=== PATIENT | male | born 1965 | race Caucasian/White ===

== ENCOUNTER → 2018-02-19 12:33 | Outpatient (CLI) | payer OTHER, SELFPAY ==
[2018-02-19 13:48] LABS: Hemoglobin A1C% w Est Avg Glu 9.2 % (4.0-6.0)
[2018-02-19 13:49] LABS: Add Manual Diff / Slide Review NO; Basophils Percent Auto 1.9 % (0-2); Eosinophils Percent Auto 5.8 % (2-4); Hematocrit 41.9 % (41-53); Hemoglobin 14.3 g/dL (13.5-17.5); Lymphocytes Percent Auto 43.1 % (25-40); Mean Corpuscular HGB Conc 34.1 % (30-36); Mean Corpuscular Hemoglobin 32.5 PG (26-34); Mean Corpuscular Volume 95.3 fL (80-100); Neutrophils Absolute Auto 3500 /uL (3000-5900); Neutrophils Percent Auto 44.2 % (50-75); Platelet Count 192 X10^3/uL (150-400); Red Cell Distribution Width 13.3 % (11.6-14.8); White Blood Cell Count 7.8 X10^3/uL (4.5-11.0)
[2018-02-19 13:54] LABS: Alanine Aminotransferase 74 IU/L (21-72); Albumin 4.5 g/dL (3.5-5.0); Albumin Globulin Ratio 1.5 (1.0-2.8); Alkaline Phosphatase 75 U/L (38-126); Aspartate Aminotransferase 83 IU/L (17-59); Bilirubin Total 0.7 mg/dL (0.2-1.3); Blood Urea Nitrogen 23 mg/dL (9-20); Calcium 9.9 mg/dL (8.4-10.2); Carbon Dioxide 26 mmol/L (22-32); Chloride 105 mmol/L (98-107); Estimated Glomerular Filt Rate > 60.0 mL/min (>60); Globulin 3.1 g/dL (1.7-4.1); Glucose 198 mg/dL (70-100); HDL Cholesterol 41 mg/dL (40-60); HEMOLYSIS < 15 (0-50); Potassium 5.3 mmol/L (3.4-5.1); Sodium 144 mmol/L (137-145); Total Protein 7.6 g/dL (6.3-8.2)
[2018-02-19 14:03] LABS: Cholesterol 438 mg/dL (140-199); Triglycerides 1376 mg/dL (35-150)
[2018-02-19 14:24] LABS: TSH w/ Reflex to FT4 2.85 uIU/mL (0.47-4.68)
[2018-02-19 16:07] LABS: Creatinine Urine Random 238.1 mg/dL
[2018-02-19 16:10] LABS: Microalbumi Creatinin Ratio Ur 28.9 ug/mg CR (<30); Microalbumin Urine Random 6.9 mg/dL (0-1.6)
== END ==
PROVIDERS: Family Provider Orthopaedic Surgery; PCP Family Medicine; Visit Provider Family Medicine
DX: E11.9 Type 2 diabetes mellitus without complications (principal); E78.1 Pure hyperglyceridemia; K70.9 Alcoholic liver disease, unspecified; Z00.00 Encounter for general adult medical examination without abnormal findings
CPT/HCPCS: 36415; 80053; 80061; 82043; 82570; 83036; 84443; 85025

== ENCOUNTER 2019-08-11 12:25 | Emergency (ER) | payer OTHER, SELFPAY ==
[2019-08-11 12:30] VITALS: BP 160/97; PULSE 98; RESP 22; TEMP 37; O2SAT 97
--- NOTE | 2019-08-11 12:43 | PC.NURSE ---
pt c/o left flank pain started 2 days ago. today having vomiting x4. pt noticed bs high than normal.
[2019-08-11 12:56] LABS: Add Manual Diff / Slide Review NO; Basophils Absolute Auto 300 /uL (0-100); Basophils Percent Auto 1.8 % (0-2); Eosinophils Absolute Auto 100 /uL (0-450); Eosinophils Percent Auto 0.5 % (2-4); Hematocrit 42.5 % (41-53); Hemoglobin 14.9 g/dL (13.5-17.5); Lymphocytes Absolute Auto 2600 /uL (1100-4500); Lymphocytes Percent Auto 18.4 % (25-40); Mean Corpuscular HGB Conc 35.1 % (30-36); Mean Corpuscular Hemoglobin 30.9 PG (26-34); Mean Corpuscular Volume 88.3 fL (80-100); Monocytes Absolute Auto 500 /uL (0-900); Monocytes Percent Auto 3.8 % (3-14); Neutrophils Absolute Auto 10800 /uL (1500-7000); Neutrophils Percent Auto 75.5 % (50-75); Platelet Count 316 X10^3/uL (150-400); Red Blood Cell Count 4.81 X10^6/uL (4.5-5.9); Red Cell Distribution Width 13.6 % (11.6-14.8); White Blood Cell Count 14.3 X10^3/uL (4.5-11.0)
[2019-08-11 13:01] LABS: Alanine Aminotransferase 21 IU/L (<50); Albumin 4.5 g/dL (3.5-5.0); Albumin Globulin Ratio 1.1 (1.0-2.8); Alkaline Phosphatase 84 U/L (38-126); Aspartate Aminotransferase 24 IU/L (17-59); BUN Creatinine Ratio 24.7 (6-22); Bilirubin Total 0.6 mg/dL (0.2-1.3); Blood Urea Nitrogen 18 mg/dL (9-20); Calcium 9.7 mg/dL (8.4-10.2); Carbon Dioxide 19 mmol/L (22-32); Chloride 99 mmol/L (98-107); Estimated Glomerular Filt Rate > 60.0 mL/min (>60); Glucose 382 mg/dL (70-100); HEMOLYSIS 38 (0-50); Lipase 94 U/L (23-300); Potassium 4.6 mmol/L (3.4-5.1); Sodium 133 mmol/L (137-145); Total Protein 8.5 g/dL (6.3-8.2)
[2019-08-11] MEDS: ONDANSETRON 4 MG/2 ML INJ IV (13:02)
--- NOTE | 2019-08-11 13:02 | ED_ITS ---
HPI - General Adult <VERNON Batista - Last Filed: 08/11/19 19:54> General Chief complaint: Diabetic Problem Stated complaint: diabetes and his kidneys are sore Time Seen by Provider: 08/11/19 12:33 Source: patient Mode of arrival: Ambulatory Limitations: no limitations History of Present Illness HPI narrative: This is a 54 year male, smoker, who presents to ED with left flank pain and states my kidney is sensitive for last 2-3 days. Patient reports this morning left flank pain has radiated to left abdomen with 2 episodes of small amount of phlemgy emesis. Patient denies fever or chills, urinary symptoms including urgency, frequency, hematuria or dysuria. Patient denies recent back straining, trauma, fall. Patient reports pain as 7 to 8/10 and malingering as constant and tender. Patient denies chest pain, nausea, history of kidney stones, kidney disease. Patient reports history of diabetes, hypertension, arthritis and reports had not taken any medications this morning as scheduled since he was not feeling well including diabetic and hypertensive medication. Patient denies diarrhea or blood in stool and reports had his normal bowel movement at 11:00 a.m. today. Patient reports he had not slept well last 24 hours secondary to pain. Patient reports he used to drink quite heavily but has not been drinking due to alcoholic and last drink as 3 weeks ago. Related Data Home Medications Medication Instructions Recorded Confirmed cholecalciferol (vitamin D3) 4,000 unit PO DAILY 08/11/19 08/11/19 [Vitamin D3] lisinopril [Zestril] 40 mg PO DAILY 08/11/19 08/11/19 magnesium oxide 400 mg PO BID 08/11/19 08/11/19 multivitamin 1 tab PO DAILY 08/11/19 08/11/19 Previous Rx's Medication Instructions Recorded glipizide 5 mg tablet 5 mg PO BID #180 tab 03/18/18 disabled parking #1 ea 04/08/18 diclofenac sodium 75 mg See Rx Instructions .ROUTE 03/12/19 tablet,delayed release .COMPLEX #180 tablet gabapentin 300 mg capsule 600 mg PO DAILY 90 Days #180 cap 03/31/19 ondansetron 4 mg PO BID-TID PRN #10 tab 08/11/19 Allergies Allergy/AdvReac Type Severity Reaction Status Date / Time hydrochlorothiazide AdvReac Mild dehydrated- Verified 08/11/19 12:43 mixed with Lisinopril Review of Systems <VERNON Batista - Last Filed: 08/11/19 19:54> Review of Systems Narrative: General: Denies fever, chills, fatigue, malaise, sweats. HEENT: Denies sinus pain, ear pain, sore throat, difficulty swallowing, dizziness. Respiratory: Denies dyspnea, cough, wheezing, hemoptysis, sputum. Cardiovascular: Denies chest pain, palpitations, orthopnea, edema. Gastrointestinal: See HPI : Denies dysuria, frequency, incontinence, hematuria, urinary retention. Musculoskeletal: Denies weakness, joint pain or bony pain, (+) left flank pain. Skin: Denies rash, skin lesions, or other. Neurologic: Denies weakness, headache, numbness, change in speech, confusion, seizures, incoordination. Psychiatric: No concerning psychosocial issues. 12-point review of systems is negative except for those stated above. Patient History <VERNON Batista - Last Filed: 08/11/19 19:54> Social History (Updated 08/11/19 @ 18:53 by VERNON Batista) marital status: unmarried,single Smoking Status: Current some day smoker Smokeless tobacco user: chewing tobacco alcohol intake: current substance use type: does not use Smoking Status: Current some day smoker alcohol intake frequency: 3 or more drinks per day (About 2 times a week) Substance Use Type: does not use Exam <VERNON Batista - Last Filed: 08/11/19 19:54> Narrative Exam Narrative: GEN: Alert, oriented x 3, well appearing and nourished, and in no acute distress. Head: Normal cephalic, atraumatic. No scalp or temporal tenderness, palpable m ass or rash. EYES: Pupils are equal, round, and reactive to light and accommodation. Extraocular muscles are intact bilaterally. There is no subconjunctival hemorrhage, exudate and sclera non-icteric. ENT: Bilateral auditory canals semi occluded with cerumen. Hearing grossly intact. Nose without bleeding, purulent discharge or deviation. Facial sinuses nontender to palpate. Mucous membrane moist, no mucosal lesion. Throat without erythema, tonsillar hypertrophy or exudate. Uvula in midline, airway patent. Neck: Trachea in midline. No JVD, non-tender without lymphadenopathy. No masses or thyroid megaly. Supple, non-tender and no meningeal signs. CARDIAC: Normal regular rate and rhythm without murmurs, gallops, or rubs. No chest wall tenderness. No peripheral edema, cyanosis or pallor. Capillary refill is less than 2 seconds. RESPIRATORY: Lungs are clear to auscultate bilaterally. No cough, wheezes, rales, or rhonchi. No stridor, respiratory distress, increase work of breathing, or accessary muscle used. ABD: Abdomen soft and non-distended, tender to palpate in left lower quadrant. No guarding or rebound tenderness to palpate. Negative Chilel's sign. Bowel sounds are normal in all 4 quadrants. There is no palpable masses or organomegaly. EXT: Full painless ROM of all extremities with no loss of sensation, strength, effusion or edema. SKIN: Warm, dry, normal color for patient. No erythema, lesions or rash over visible areas. BACK: Nontender without deformity or crepitance. Left flank tenderness to palpate. NEUROLOGICAL: Alert and oriented to place, time and person. Sensation and motor function intact bilaterally. No facial droops, dysphasia. PSYCHIATRIC: Good judgement and reason, without hallucinations, abnormal affect or abnormal behaviors during the examination. Initial Vital Signs Initial Vital Signs: Vital Signs Temperature 98.6 F 08/11/19 12:30 Pulse Rate 98 H 08/11/19 12:30 Respiratory Rate 22 08/11/19 12:30 Blood Pressure 160/97 H 08/11/19 12:30 Pulse Oximetry 97 08/11/19 12:30 <Vinicio Isaac DO - Last Filed: 08/12/19 07:12> Initial Vital Signs Initial Vital Signs: Vital Signs Temperature 98.6 F 08/11/19 12:30 Pulse Rate 98 H 08/11/19 12:30 Respiratory Rate 22 08/11/19 12:30 Blood Pressure 160/97 H 08/11/19 12:30 Pulse Oximetry 97 08/11/19 12:30 Scores <VERNON Batista - Last Filed: 08/11/19 19:54> GCS Earlene coma scale eye opening: Spontaneous Earlene coma scale verbal response: Orientated Earlene coma scale motor response: Obey commands [place] coma scale total score: 15 Course <VERNON Batista - Last Filed: 08/11/19 19:54> Orders Ordered: Discontinued Medications Sodium Chloride (Normal Saline 0.9%) 1,000 mls @ 150 mls/hr IV CONT JEREMIAH Last Infusion: 08/11/19 15:45 Dose: 0 mls/hr Documented by: Admin: 08/11/19 13:16 Dose: 150 mls/hr Documented by: TABBY Ketorolac Tromethamine (Toradol) 15 mg IV NOW ONE Stop: 08/11/19 13:03 Last Admin: 08/11/19 13:16 Dose: 15 mg Documented by: TABBY Ondansetron HCl (Zofran) 4 mg IV NOW ONE Stop: 08/11/19 12:47 Last Admin: 08/11/19 13:02 Dose: 4 mg Documented by: CHINMAY Vital Signs Vital signs: Vital Signs - 8 hr 08/11/19 12:30 08/11/19 14:22 08/11/19 15:43 Temperature 98.6 F Pulse Rate 98 H 82 91 H Respiratory Rate 22 16 16 Blood Pressure 160/97 H 164/90 H Blood Pressure [Left Arm] 149/78 H Pulse Oximetry 97 94 99 <Vinicio Isaac DO - Last Filed: 08/12/19 07:12> Orders Ordered: Discontinued Medications Sodium Chloride (Normal Saline 0.9%) 1,000 mls @ 150 mls/hr IV CONT JEREMIAH Last Infusion: 08/11/19 15:45 Dose: 0 mls/hr Documented by: Admin: 08/11/19 13:16 Dose: 150 mls/hr Documented by: TABBY Ketorolac Tromethamine (Toradol) 15 mg IV NOW ONE Stop: 08/11/19 13:03 Last Admin: 08/11/19 13:16 Dose: 15 mg Documented by: TABBY Ondansetron HCl (Zofran) 4 mg IV NOW ONE Stop: 08/11/19 12:47 Last Admin: 08/11/19 13:02 Dose: 4 mg Documented by: CHINMAY Vital Signs Vital signs: Vital Signs - 8 hr 08/11/19 12:30 08/11/19 14:22 08/11/19 15:43 Temperature 98.6 F Pulse Rate 98 H 82 91 H Respiratory Rate 22 16 16 Blood Pressure 160/97 H 164/90 H Blood Pressure [Left Arm] 149/78 H Pulse Oximetry 97 94 99 Medical Decision Making <VERNON Batista - Last Filed: 08/11/19 19:54> Differential Diagnosis Differential Diagnosis: Kidney stone, diverticulitis, bowel obstruction, UTI, colitis Medical Records Medical records reviewed: Yes I reviewed the patient's medical records. Lab Data Lab results reviewed: Yes I reviewed the patient's lab results. Result diagrams: 08/11/19 12:35 08/11/19 12:35 Labs: Lab Results 08/11/19 08/11/19 08/11/19 Range/Units 12:35 12:35 12:35 WBC 14.3 H (4.5-11.0) X10^3/uL RBC 4.81 (4.5-5.9) X10^6/uL Hgb 14.9 (13.5-17.5) g/dL Hct 42.5 (41-53) % MCV 88.3 (80-100) fL MCH 30.9 (26-34) PG MCHC 35.1 (30-36) % RDW 13.6 (11.6-14.8) % Plt Count 316 (150-400) X10^3/uL Neut % (Auto) 75.5 H (50-75) % Lymph % (Auto) 18.4 L (25-40) % Hendricks % (Auto) 3.8 (3-14) % Eos % (Auto) 0.5 L (2-4) % Baso % (Auto) 1.8 (0-2) % Neut # (Auto) 49633 H (7152-2961) /uL Lymph # (Auto) 2600 (2578-7639) /uL Hendricks # (Auto) 500 (0-900) /uL Eos # (Auto) 100 (0-450) /uL Baso # (Auto) 300 H (0-100) /uL Sodium 133 L (137-145) mmol/L Potassium 4.6 (3.4-5.1) mmol/L Chloride 99 (98-107) mmol/L Carbon Dioxide 19 L (22-32) mmol/L BUN 18 (9-20) mg/dL Creatinine 0.73 (0.66-1.25) mg/dL Estimated GFR > 60.0 (>60) mL/min BUN/Creatinine Ratio 24.7 H (6-22) Glucose 382 H (70-100) mg/dL Lactate (0.7-2.1) mmol/L Calcium 9.7 (8.4-10.2) mg/dL Total Bilirubin 0.6 (0.2-1.3) mg/dL AST 24 (17-59) IU/L ALT 21 (<50) IU/L Alkaline Phosphatase 84 (38-126) U/L Total Protein 8.5 H (6.3-8.2) g/dL Albumin 4.5 (3.5-5.0) g/dL Globulin 4.0 (1.7-4.1) g/dL Albumin/Globulin Ratio 1.1 (1.0-2.8) Lipase 94 (23-300) U/L Procalcitonin 0.50 (<0.5) ng/mL 08/11/19 Range/Units 13:12 WBC (4.5-11.0) X10^3/uL RBC (4.5-5.9) X10^6/uL Hgb (13.5-17.5) g/dL Hct (41-53) % MCV (80-100) fL MCH (26-34) PG MCHC (30-36) % RDW (11.6-14.8) % Plt Count (150-400) X10^3/uL Neut % (Auto) (50-75) % Lymph % (Auto) (25-40) % Hendricks % (Auto) (3-14) % Eos % (Auto) (2-4) % Baso % (Auto) (0-2) % Neut # (Auto) (5860-3935) /uL Lymph # (Auto) (8317-2235) /uL Hendricks # (Auto) (0-900) /uL Eos # (Auto) (0-450) /uL Baso # (Auto) (0-100) /uL Sodium (137-145) mmol/L Potassium (3.4-5.1) mmol/L Chloride (98-107) mmol/L Carbon Dioxide (22-32) mmol/L BUN (9-20) mg/dL Creatinine (0.66-1.25) mg/dL Estimated GFR (>60) mL/min BUN/Creatinine Ratio (6-22) Glucose (70-100) mg/dL Lactate 1.1 (0.7-2.1) mmol/L Calcium (8.4-10.2) mg/dL Total Bilirubin (0.2-1.3) mg/dL AST (17-59) IU/L ALT (<50) IU/L Alkaline Phosphatase (38-126) U/L Total Protein (6.3-8.2) g/dL Albumin (3.5-5.0) g/dL Globulin (1.7-4.1) g/dL Albumin/Globulin Ratio (1.0-2.8) Lipase (23-300) U/L Procalcitonin (<0.5) ng/mL Point of Care Testing Glucose POC 303 Point of care testing: Point of Care Testing Glucose POC 303 MDM Narrative Medical decision making narrative: This is a 54-year-old male who has chronic history of type 2 diabetes, hypertension, alcoholic liver damage presents to ED with left flank pain which started 2 days ago and radiating to left quadrant today with some nausea and small amount of phlegmy emesis today. Patient denies fever, chills. Abdominal physical exam appreciated left lower quadrant to palpate with left flank pain with percussion. There was no tenderness in epigastric region. Patient denies urinary symptoms. Mild leukocytosis of 14.3 with neutrophil of 75.5%. Lipase was normal with normal liver function test. Mild hyponatremia of 133. Elevated blood glucose of 382 with mildly elevated BUN/creatinine ratio of 24.7 with normal kidney function test. Lactate, procalcitonin was within normal limits. Patient had normal potassium level of 4.6 with slightly decreased CO2 of 19. Patient reports has not been hydrating well since this morning and had not taken moaning medications including hypertensive and diabetic medication. Patient was medicated with Zofran and IV fluid while in ED with IV Toradol for pain. CT of abdomen/pelvis was obtained and it showed normal appendectomy, a few colonic diverticulosis without acute diverticulitis. Kidneys demonstrate no hydronephrosis, kidney stones. There was a small calcification measuring 4 mm in left renal helium and left adrenal nodule measuring up to 1.5 cm. There is no indication of kidney infection per CT test. There is a peripancreatic fluid and fat stranding along the body and tail of the pancreas consistent with acute pancreatitis and mild hyperenhancement within the pancreatic tail suggestive of necroses. There is no pancreatic duct dilation, no mass was appreciated. Gallbladder appears to be normal without biliary system dilation. Findings were discussed with the patient. Unfortunately, patient was not able to provide urine sample before discharged to home. was consulted over the phone and he kindly to follow-up with the patient tomorrow morning at 9:30 a.m. patient reassessed before discharged to home and continue with negative Chilel's sign/epigastric tenderness to palpate. Patient's physical exam and lab test is not too consistent with CT exam result to be considered for admission to the hospital. Return precautions were discussed with the patient and advised to take [id number] Tylenol and or Motrin as needed and Rx to home with Zofran for anti nausea medication. Patient advised to take his morning medications when he gets home. Patient's pancreatitis could be chronic or chronic diabetes type 2. <Vinicio Isaac, DO - Last Filed: 08/12/19 07:12> Lab Data Labs: Lab Results 08/11/19 08/11/19 08/11/19 Range/Units 12:35 12:35 12:35 WBC 14.3 H (4.5-11.0) X10^3/uL RBC 4.81 (4.5-5.9) X10^6/uL Hgb 14.9 (13.5-17.5) g/dL Hct 42.5 (41-53) % MCV 88.3 (80-100) fL MCH 30.9 (26-34) PG MCHC 35.1 (30-36) % RDW 13.6 (11.6-14.8) % Plt Count 316 (150-400) X10^3/uL Neut % (Auto) 75.5 H (50-75) % Lymph % (Auto) 18.4 L (25-40) % Hendricks % (Auto) 3.8 (3-14) % Eos % (Auto) 0.5 L (2-4) % Baso % (Auto) 1.8 (0-2) % Neut # (Auto) 61511 H (2125-1560) /uL Lymph # (Auto) 2600 (4411-2605) /uL Hendricks # (Auto) 500 (0-900) /uL Eos # (Auto) 100 (0-450) /uL Baso # (Auto) 300 H (0-100) /uL Sodium 133 L (137-145) mmol/L Potassium 4.6 (3.4-5.1) mmol/L Chloride 99 (98-107) mmol/L Carbon Dioxide 19 L (22-32) mmol/L BUN 18 (9-20) mg/dL Creatinine 0.73 (0.66-1.25) mg/dL Estimated GFR > 60.0 (>60) mL/min BUN/Creatinine Ratio 24.7 H (6-22) Glucose 382 H (70-100) mg/dL Lactate (0.7-2.1) mmol/L Calcium 9.7 (8.4-10.2) mg/dL Total Bilirubin 0.6 (0.2-1.3) mg/dL AST 24 (17-59) IU/L ALT 21 (<50) IU/L Alkaline Phosphatase 84 (38-126) U/L Total Protein 8.5 H (6.3-8.2) g/dL Albumin 4.5 (3.5-5.0) g/dL Globulin 4.0 (1.7-4.1) g/dL Albumin/Globulin Ratio 1.1 (1.0-2.8) Lipase 94 (23-300) U/L Procalcitonin 0.50 (<0.5) ng/mL 08/11/19 Range/Units 13:12 WBC (4.5-11.0) X10^3/uL RBC (4.5-5.9) X10^6/uL Hgb (13.5-17.5) g/dL Hct (41-53) % MCV (80-100) fL MCH (26-34) PG MCHC (30-36) % RDW (11.6-14.8) % Plt Count (150-400) X10^3/uL Neut % (Auto) (50-75) % Lymph % (Auto) (25-40) % Hendricks % (Auto) (3-14) % Eos % (Auto) (2-4) % Baso % (Auto) (0-2) % Neut # (Auto) (1937-8047) /uL Lymph # (Auto) (2034-6207) /uL Hendricks # (Auto) (0-900) /uL Eos # (Auto) (0-450) /uL Baso # (Auto) (0-100) /uL Sodium (137-145) mmol/L Potassium (3.4-5.1) mmol/L Chloride (98-107) mmol/L Carbon Dioxide (22-32) mmol/L BUN (9-20) mg/dL Creatinine (0.66-1.25) mg/dL Estimated GFR (>60) mL/min BUN/Creatinine Ratio (6-22) Glucose (70-100) mg/dL Lactate 1.1 (0.7-2.1) mmol/L Calcium (8.4-10.2) mg/dL Total Bilirubin (0.2-1.3) mg/dL AST (17-59) IU/L ALT (<50) IU/L Alkaline Phosphatase (38-126) U/L Total Protein (6.3-8.2) g/dL Albumin (3.5-5.0) g/dL Globulin (1.7-4.1) g/dL Albumin/Globulin Ratio (1.0-2.8) Lipase (23-300) U/L Procalcitonin (<0.5) ng/mL Point of Care Testing Glucose POC 303 Point of care testing: Point of Care Testing Glucose POC 303 Discharge Plan Departure Patient Disposition: Home Clinical Impression: Colon, diverticulosis, Nodule of kidney Pancreatitis Qualifiers: Chronicity: acute Pancreatitis type: unspecified pancreatitis type Acute pancreatitis complication: unspecified Qualified Code(s): K85.90 - Acute pancreatitis without necrosis or infection, unspecified Discharge Date/Time: 08/11/19 15:44 Instructions: DI for Diverticulosis, DI for Acute Pancreatitis-Child Activity Restrictions/Additional Instructions: You have been diagnosed with [is colonic diverticulosis without acute diverticulitis, indication of acute pancreatitis and nodule in left kidney according to CT scan test today. CBC test shows mildly increased white count but normal lipase and chemistry test including liver function test. There is no indication of severe infection such as procalcitonin or lactate. You were treated with IV fluid, zofran and Toradol for discomfort. You had elevated blood glucose and blood pressure while in ED. This may due to not taking a.m. medication for diabetes and high blood pressure]. What to do: *Take your medications as directed. Zofran has been transmitted to [facility] in [place] and you can take these as needed for nausea so you can hydrate yourself. You can take [id number] Tylenol and or Motrin as needed for discomfort. Tylenol 650 3 to 4 times a day and ibuprofen 400 mg up to 3 times a day with food. *Follow up with your primary care provider, Dr. Gonsalves tomorrow morning at 9:30 a.m. Let them know you were seen in the ED and that we asked you to be seen in follow up. *Return to ED if you have any new, worsening, or concerning symptoms, such as [ chest pain, breathing difficulty, unable to tolerate fluids, fever, severe abdominal pain, blood in your stool or vomiting or any acute concerns]. Prescriptions: New ondansetron 4 mg tablet,disintegrating 4 mg PO BID-TID PRN (Reason: nausea and vomiting) Qty: 10 RF: 0 No Action (DME) disabled parking 0 .Route .MEDSUPPLY Qty: 1 RF: 0 diclofenac sodium 75 mg tablet,delayed release (DR/EC) See Rx Instructions .ROUTE .COMPLEX Qty: 180 RF: 0 gabapentin 300 mg capsule 600 mg PO DAILY 90 Days Qty: 180 RF: 3 glipizide 5 mg tablet 5 mg PO BID Qty: 180 RF: 3 lisinopril [Zestril] 40 mg tablet 40 mg PO DAILY RF: 0 multivitamin Tablet 1 tab PO DAILY RF: 0 magnesium oxide 400 mg magnesium Capsule 400 mg PO BID RF: 0 Vitamin D3 4,000 unit Capsule 4,000 unit PO DAILY RF: 0 Referrals: Mayo Gonsalves MD [Primary Care Provider] - <Vinicio Isaac DO - Last Filed: 08/12/19 07:12> Cosign ED Attending Cosignature Attestation: Dr Isaac Co-Sign Statement: I was available for consultation during this patient's emergency department visit. This chart is signed by myself for administrative purposes only. I did not have direct contact with this patient during this visit. They were seen indepen dently by the APC.
[2019-08-11] MEDS: KETOROLAC 60 MG/2 ML VIAL 15 MG IV (13:16)
[2019-08-11] MEDS: SODIUM CHLORIDE 0.9% 1,000 ML 150 ML IV (13:16)
--- NOTE | 2019-08-11 13:22 | DI.CT.S_ITS ---
PROCEDURE: CT ABDOMEN PELVIS W CON INDICATIONS: LLQ and flank pain with nausea TECHNIQUE: After the administration of intravenous contrast, 5 mm thick sections acquired from the diaphragm to the symphysis. 5 mm coronal and sagittal reformats were acquired. For radiation dose reduction, the following was used: automated exposure control, adjustment of mA and/or kV according to patient size. COMPARISON: None. FINDINGS: Image quality: Excellent. ABDOMEN: Lung bases: Lung bases are clear. Heart size is normal. Solid organs: Evaluation of the liver demonstrates no focal hepatic lesions. The gallbladder appears within normal limits without calcified gallstones. Biliary system is non-dilated. The spleen is normal in size. There is an indeterminate left adrenal nodule measuring up to 1.5 cm. Kidneys demonstrate no hydronephrosis. There is a small calcification measuring 4 mm in the left renal hilum consistent with a vascular calcification. No discrete renal stones. There is peripancreatic fluid and fat stranding along the body and tail of the pancreas consistent with acute pancreatitis. No discrete loculated fluid collections. Mild hyper enhancement is demonstrated within the pancreatic tail suggestive of necrosis. No pancreatic duct dilatation. No discrete pancreatic mass identified. Peritoneum and bowel: Bowel loops demonstrate normal wall thickness and caliber. The appendix is normal in appearance. There are a few colonic diverticula without acute diverticulitis. As noted above, there is a small amount of peripancreatic fluid along the pancreatic body and tail extending inferiorly along the left anterior pararenal space are no free air. Nodes and vessels: No retroperitoneal or mesenteric adenopathy by size criteria. Aorta and inferior vena cava are normal in size. Miscellaneous: No ventral hernias. PELVIS: Genitourinary: Bladder wall thickness is normal. Miscellaneous: No inguinal hernias or adenopathy. Bones: No suspicious bony lesions. No vertebral body compression fractures. IMPRESSION: 1. Findings consistent with acute pancreatitis with hyperenhancement in the pancreatic tail suggestive of necrosis. No loculated fluid collections to suggest an acute necrotic collection. 2. Colonic diverticulosis without acute diverticulitis. Dictated by: Shiva Anderson M.D. on 08/11/2019 at 13:38 Approved by: Shiva Anderson M.D. on 08/11/2019 at 13:44
[2019-08-11 13:31] LABS: Lactate (Lactic Acid) 1.1 mmol/L (0.7-2.1)
[2019-08-11 14:22] VITALS: BP 149/78; PULSE 82; RESP 16; O2SAT 94
[2019-08-11 15:43] VITALS: BP 164/90; PULSE 91; RESP 16; O2SAT 99
== END 2019-08-11 15:44 | disposition home or self-care (01) ==
PROVIDERS: Emergency Provider Nurse Practitioner Family; Family Provider Orthopaedic Surgery; PCP Family Medicine
DX: K57.30 Diverticulosis of large intestine without perforation or abscess without bleeding (principal); N28.89 Other specified disorders of kidney and ureter; K85.90 Acute pancreatitis without necrosis or infection, unspecified; E11.9 Type 2 diabetes mellitus without complications; I10 Essential (primary) hypertension
CPT/HCPCS: 36415; 74177; 80053; 82962; 83605; 83690; 84145; 85025; 96361; 96374; 96375; 99284; J1885; J2405; Q9967